=== PATIENT | female | born 1965 | race Caucasian/White ===

== ENCOUNTER 2024-07-07 09:14 | Day surgery (SDC) | payer MEDICARE, OTHER ==
[~2024-07-07] VITALS: Ht 157.5 cm; Wt 56.5 kg
[2024-07-07] VITALS (19 sets, daily range): BP systolic 90–154; BP diastolic 54–90
[~2024-07-07 09:14] MED LIST: ACET325 PO; ALPR1 PO; Bleph-10 Opth S15 ML BOTHEYES; C COMPLEX1000 M1 PO; CONEST.625 PO; CeFAZolin Sodium 2,000 MG VIAL ONE; CeFAZolin Sodium 2,000 MG in NS 100 ML IV SCH; ESTRADIOL0.5 MG PO; Estradiol0.5 MG PO; FISH OIL 1,2001 EAC7 PO; FT SENNA-S 8.61 EACH PO; GABA100 PO; IBUP200 PO; IRON; KAPSPARGO SPRIN25 MG PO; KETO10 PO; Lactated Ringer's 1,000 ML IV SCH; MAGCIT300 PO; MAGNESIUM; MAGNESIUM OXID500 MG PO; MELA3 PO; METO25ER PO; MIRT15 PO; MULTI-VITAMIN1 EAC2 PO; Neurontin800 MG PO; OMEP20ER PO; ONDA4ODT MM; POTASSIUM; POTASSIUM99 M3 PO; PROG100 PO; PYRI100 PO; Percocet 5-3251 EACH PO; SERT100 PO; THERA-D2000 UNIT PO; TRAZ50 PO; VITAMIN D325 MC3 PO; VITAMIN D5000 UNIT PO; Vitamin B-12100 MCG PO
[2024-07-07] MEDS ORDERED: Bupivacaine 0.5% HCl 5 MG/ML 30MLVIAL ONE (09:48)
--- NOTE | 2024-07-07 09:55 | NUR ---
History, Chart, Medications and Allergies reviewed before start of procedure. Pre-Op teaching done. Pt verbalizes understanding. Patient confirms NPO status and agrees with scheduled surgery. PT BELONGINGS BAG PLACED UNDER BED. PT STATES SHE WILL NOT REMOVE RING ON LEFT HAND 4TH FINGER. RAJENDRA CONSENT FORMED SIGNED.
[2024-07-07] MEDS ORDERED: propofoL 20 ML IV ONE (10:15)
[2024-07-07] MEDS ORDERED: Ketorolac Tromethamine 30mg Vial ONE (10:16)
[2024-07-07] MEDS ORDERED: Dexamethasone Sod Phos 10 MG/ML 1ML VIAL ONE (10:16)
[2024-07-07] MEDS ORDERED: Rocuronium Bromide 10 MG/ML 5ML Injection IV ONE ×2 (10:16→11:42)
[2024-07-07] MEDS ORDERED: Ondansetron HCl 2 MG / ML 2ML Vial ONE (10:16)
[2024-07-07] MEDS ORDERED: FentaNYL Citrate 50 MCG/ML 2 ML Injection ONE ×2 (10:16→12:21)
[2024-07-07] MEDS ORDERED: Phenylephrine HCl 100 MCG/ML-NS 10MLSYR (1MG/10ML) ONE (10:31)
[2024-07-07] MEDS ORDERED: Albuterol 2.5 MG/3 ML VIAL INH PRN (10:45)
[2024-07-07] MEDS ORDERED: FentaNYL Citrate 50 MCG/ML 2 ML Injection IV PRN (10:50)
[2024-07-07] MEDS ORDERED: Droperidol 5 mg/2 ml Vial IV PRN (10:50)
[2024-07-07] MEDS ORDERED: HYDROmorphone HCl/Pf 1MG SYR IV PRN ×2 (10:50→12:05)
[2024-07-07] MEDS ORDERED: HYDROmorphone HCl/Pf 1MG SYR ONE ×2 (11:50→12:21)
[2024-07-07] MEDS ORDERED: Sugammadex Sodium 200 MG/2ML SDV (100 MG/ML) ONE (11:51)
[2024-07-07] MEDS ORDERED: FLU VACC TS2024-25(6MOS UP)/PF 45 MCG/0.5 ML SYRINGE IM ONE (12:05)
[2024-07-07] MEDS ORDERED: DiphenhydrAMINE HCL 25 MG Cap PO PRN (12:05)
[2024-07-07] MEDS ORDERED: Simethicone 80 MG Chew PO PRN (12:05)
[2024-07-07] MEDS ORDERED: Lactated Ringer's 1,000 ML IV SCH (12:05)
[2024-07-07] MEDS ORDERED: Metoclopramide HCl 5MG / ML 2ML Vial IV PRN (12:10)
[2024-07-07] MEDS ORDERED: Naloxone HCl 0.4MG / ML 1ML Vial IV PRN (12:10)
[2024-07-07] MEDS ORDERED: Ondansetron 4 MG TAB PO PRN (12:10)
[2024-07-07] MEDS ORDERED: Ondansetron HCl 2 MG / ML 2ML Vial IV PRN (12:10)
[2024-07-07] MEDS ORDERED: Metoclopramide HCl 10 MG Tab PO PRN (12:10)
[2024-07-07] MEDS ORDERED: OxyCODONE HCL 5 MG TAB PO PRN (12:15)
[2024-07-07] MEDS ORDERED: Ketorolac Tromethamine 30mg Vial IV PRN (12:45)
--- NOTE | 2024-07-07 14:00 | NUR ---
ARRIVAL NOTE PT TO ROOM 227 FROM PACU. ALERT AND RESPONSIVE, PLEASANT, REPORTS MODERATE PAIN AND MEDICATED PER EMAR SHORTLY AFTER ARRIVAL. VSS. PT TOLERATING PO FLUIDS AND REG DIET. NO BLEEDING PRESENT ON ROE PAD. DRESSINGS C/D/I. PAS ON. CALL LIGHT IN REACH.
[2024-07-07] MEDS ORDERED: Acetaminophen 500 MG Tab PO SCH (16:00)
[2024-07-07] MEDS ORDERED: Peg 400/Hypromellose/Glycerin 15 DROP/ML BTL BOTHEYES PRN (16:30)
--- NOTE | 2024-07-07 16:47 | NUR ---
SHIFT SUMMARY PT IS PODO FOR LAP HYSTER W/ DR. DHALIWAL. PT IS IND/SBA W/ IV POLE, DRESSINGS C/D/I, NO VAGINAL BLEEDING PRESENT ON ROE PAD. PT HAS VOIDED POST OP. VSS. PAIN TOLERABLE W/ PRN PAIN MEDS PER EMAR. IV FLUIDS GIVEN PER EMAR. TOLERATING REG DIET AND FLUIDS. PAS ON. K PAD USED FOR COMFORT/PAIN RELIEF. PT USING CALL LIGHT APPROPRIATELY, PLAN TO D/C HOME TOMORROW.
--- NOTE | 2024-07-07 19:51 | NUR ---
NOTIFIED DR. DHALIWAL OF [facility] BLADDER SCAN OF 111 AFTER SECOND VOID. ORDER FOR BLADDER SCAN AFTER THIRD VOID RECIEVED, NOC RN NOTIFIED. PT RESTING IN BED, STATES PAIN IS TOLERABLE, CALL LIGHT IN REACH.
[2024-07-07] MEDS ORDERED: Metoprolol Succinate 25 MG TABCR PO SCH (21:00)
[2024-07-07] MEDS ORDERED: Mirtazapine 15 MG Tab PO SCH (21:00)
[2024-07-08 05:02] VITALS: BP 95/57
--- NOTE | 2024-07-08 07:24 | NUR ---
SHIFT SUMMARY NOC. PT POD 1 FOR GUERLINE JAMESON HYSTER WITH DR. DHALIWAL. PT VOIDING URINE AND TOLERATING PO INTAKE WITHOUT N/V. PT MEDICATED FOR PAIN AND GAS WITH REPORTED RELIEF OF SX. PT AMBULATES WITH SBA D/T HX OF FALLS. PT WALKED SELF TO BR X1 WITHOUT CALLING. PT EDUCATED ON FALL RISK AND AGREED TO CALL GOING FORWARD. CALL LIGHT IN REACH.
[2024-07-08 07:36] VITALS: BP 109/65
[2024-07-08] MEDS ORDERED: Sertraline HCl 100 MG Tab PO SCH (09:00)
[2024-07-08] MEDS ORDERED: ACET500 PO (09:37)
[2024-07-08] MEDS ORDERED: OXAYDO5 M1 PO (09:38)
--- NOTE | 2024-07-08 13:32 | NUR ---
DISCHARGE NOTE THIS RN ASSUMED CARE AT APPROX 0715. PATIENT ALERT AND ORIENTED X4. COMMUNICATING NEEDS EFFECTIVELY. POD 1 TOTAL LAP HYSTER - X4 LAP SITES W/ WOUND GLUE C/D/I. SOME BRUISING NOTED AROUND SITES. PAINFUL THIS MORNING - MEDICATED PER EMAR, AMBULATION ENCOURAGED, ABD BINDER, AND ICE/KPAD. PAIN IMPROVED THIS AFTERNOON FOR DC HOME. TOLERATING PO INTAKE. VOIDING. REPORTING SOME FLATULENCE, BUT DENIES BM. DC EDUCATION PROVIDED - PATIENT STATES UNDERSTANDING. IV REMOVED. DC PRESCRIPTIONS PICKED UP BY PATIENT PRIOR TO PROCEDURE. PATIENT TRANSFERRED TO PERSONAL VEHICLE VIA WHEELCHAIR AT APPROX 1330. PERSONAL BELONGINGS WITH PATIENT.
== END 2024-07-08 13:30 | disposition home or self-care (01) ==
LOC: ORSCMMR 09:14 → ORD 10:15 → ORSCMMR 10:30 → SURS 12:35 → ORSCMMR 07-08 13:30
PROVIDERS: Obstetrics & Gynecology
PROC: 0UT2FZZ Resection of Bilateral Ovaries, Via Natural or Artificial Opening With Percutaneous Endoscopic Assistance (ICD-10-PCS; principal; 2024-07-07 10:30)
PROC: 0UT7FZZ Resection of Bilateral Fallopian Tubes, Via Natural or Artificial Opening With Percutaneous Endoscopic Assistance (ICD-10-PCS; principal; 2024-07-07 10:30)
PROC: 0UT9FZZ Resection of Uterus, Via Natural or Artificial Opening With Percutaneous Endoscopic Assistance (ICD-10-PCS; principal; 2024-07-07 10:30)
DX: N95.0 Postmenopausal bleeding (principal); D25.9 Leiomyoma of uterus, unspecified; N84.1 Polyp of cervix uteri; N73.6 Female pelvic peritoneal adhesions (postinfective); N80.202 Endometriosis of left fallopian tube, unspecified depth; N83.8 Other noninflammatory disorders of ovary, fallopian tube and broad ligament; Z87.891 Personal history of nicotine dependence; J44.9 Chronic obstructive pulmonary disease, unspecified; M79.7 Fibromyalgia; F41.9 Anxiety disorder, unspecified; F32.A Depression, unspecified; Z79.899 Other long term (current) drug therapy
CPT/HCPCS: 86850; 86900; 86901; 88307; 94762; A9270; J0690; J1100; J1171; J1885; J2371; J2405; J2704; J3010; J7120

== ENCOUNTER → 2024-08-18 | Outpatient (CLI) | payer MEDICARE, OTHER ==
[~2024-08-18] MED LIST changes: +ACET500 PO; -CeFAZolin Sodium 2,000 MG VIAL ONE; -CeFAZolin Sodium 2,000 MG in NS 100 ML IV SCH; -Lactated Ringer's 1,000 ML IV SCH; +OXAYDO5 M1 PO
[2024-08-18 16:28] LABS: Bacterial Vaginosis PCR Negative (NEGATIVE); Candida Group, PCR NOT DETECTED (NOT DETECT); Candida glabrata-krusei, PCR NOT DETECTED (NOT DETECT)
== END | disposition home or self-care (01) ==
LOC: LAB 12:31 → LAB SHORT 12:31
PROVIDERS: Obstetrics & Gynecology
DX: N76.0 Acute vaginitis (principal)
CPT/HCPCS: 81515

== ENCOUNTER → 2024-08-29 | Outpatient (CLI) | payer MEDICARE, OTHER ==
[2024-08-29 15:07] LABS: Source, Urine Clean Catch
[2024-08-29 16:06] LABS: Appearance, Urine Clear (Clear); Bilirubin, Urine Neg (Neg); Blood, Urine Neg (Neg); Color, Urine Yellow (P-Yellow); Glucose Qualitative, Urine Neg (Neg); Ketones, Urine Neg (Neg); Leukocyte Esterase, Urine Neg (Neg); Nitrite, Urine Neg (Neg); Protein, Urine Neg (Neg); Urobilinogen, Urine NORM (Normal)
== END ==
LOC: LAB SHORT 15:05 → LAB 15:05
PROVIDERS: Obstetrics & Gynecology
DX: R35.0 Frequency of micturition (principal)
CPT/HCPCS: 81003

== ENCOUNTER → 2024-10-23 | Outpatient (CLI) | payer MEDICARE, OTHER ==
[~2024-10-23] MED LIST changes: +ESCI10; +PROBIOTIC1 EA14; +TURMERIC ROOT5000 GM
[2024-10-23 15:04] LABS: Bacterial Vaginosis PCR Negative (NEGATIVE); Candida Group, PCR NOT DETECTED (NOT DETECT); Candida glabrata-krusei, PCR NOT DETECTED (NOT DETECT)
== END ==
LOC: LAB SHORT 11:15 → LAB 11:15
PROVIDERS: Obstetrics & Gynecology
DX: N76.0 Acute vaginitis (principal)
CPT/HCPCS: 81515

== ENCOUNTER 2024-10-29 10:00 | Day surgery (SDC) | payer MEDICARE, OTHER ==
[~2024-10-29] VITALS: Ht 160 cm; Wt 55.5 kg
[~2024-10-29 10:00] MED LIST changes: -ESCI10; +Lactated Ringer's 1,000 ML IV ONE; -PROBIOTIC1 EA14; -TURMERIC ROOT5000 GM; +propofoL 50 ML IV ONE
[2024-10-29] MEDS ORDERED: TURMERIC ROOT5000 GM (10:33)
[2024-10-29] MEDS ORDERED: PROBIOTIC1 EA14 (10:33)
[2024-10-29] MEDS ORDERED: ESCI10 (10:35)
[2024-10-29] MEDS ORDERED: Lactated Ringer's 1,000 ML IV ONE (11:01)
[2024-10-29 12:40] VITALS: BP 120/69
== END 2024-10-29 12:11 | disposition home or self-care (01) ==
LOC: ORSCSDS 10:00
PROVIDERS: Specialist
PROC: 0DJD8ZZ Inspection of Lower Intestinal Tract, Via Natural or Artificial Opening Endoscopic (ICD-10-PCS; principal; 2024-10-29 11:15)
DX: K62.5 Hemorrhage of anus and rectum (principal); Z86.0100 Personal history of colon polyps, unspecified; K64.8 Other hemorrhoids; K57.30 Diverticulosis of large intestine without perforation or abscess without bleeding; K64.4 Residual hemorrhoidal skin tags; Z79.899 Other long term (current) drug therapy
CPT/HCPCS: J2704; J7120

== ENCOUNTER → 2025-06-10 | Outpatient (CLI) | payer MEDICARE, OTHER ==
[~2025-06-10] MED LIST changes: +ESCI10; -Lactated Ringer's 1,000 ML IV ONE; +PROBIOTIC1 EA14; +TURMERIC ROOT5000 GM; -propofoL 50 ML IV ONE
== END | disposition home or self-care (01) ==
LOC: LAB SHORT 07:00 → LAB 07:00
DX: R63.1 Polydipsia (principal)
CPT/HCPCS: 83935